=== PATIENT | female | born 1950 | race Caucasian/White ===

== ENCOUNTER 2019-02-22 14:24 | Emergency (ER) | payer OTHER, BC ==
[2019-02-22] MEDS ORDERED: ASPIRIN 81 MG CHEWABLE TAB PO ONE (15:01)
[2019-02-22 15:08] LABS: PLATELET COUNT 243 10^3/uL (150-400)
--- NOTE | 2019-02-22 17:28 | EDPHY ---
H & P Stated Complaint: lighthead, dizzy. left sided, rib pain Time Seen by Provider: 02/22/19 14:42 HPI/ROS: CHIEF COMPLAINT: Left-sided chest pain HISTORY OF PRESENT ILLNESS: This is a 68-year-old female with a history of hypertension but otherwise in good health who presents with mild left-sided chest pain. She was hiking earlier today when she began to feel poorly. She felt slightly lightheaded and became diaphoretic. This came over her in a wave- like manner. She subsequently noted a twinge of left-sided chest pain. There is no radiation of this discomfort. She did not have nausea or vomiting. She did not feel short of breath. Chest discomfort continued, prompting her visit to the emergency department. She has a strong family history of cardiac disease. Her father at age 77 of an PR. She has a brother who at age 66 of an PR and another brother with coronary artery disease status post stenting. She does not use tobacco products. REVIEW OF SYSTEMS: A ten system review of systems was performed and is negative with the exception of the items mentioned in the HPI. Past medical history: Hypertension Past surgical history: Removal of skin cancer Family history: Positive for coronary artery disease as per HPI Social history: She lives with her in [place], [place]. 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 She does not use tobacco products. She drinks alcohol rarely. They have family in [place]. General Appearance: Alert. Vital signs reviewed. Initial blood pressure 181/ 95. Eyes: Pupils equal and round, no conjunctival injection, no discharge. Anicteric. ENT, Mouth: Mucous membranes are moist, no oropharyngeal erythema or edema. Neck: No lymphadenopathy, supple. Respiratory: Lungs are clear to auscultation; no wheezes, rales, or rhonchi. Cardiovascular: Regular rate and rhythm; no murmur, rub, or gallop. Gastrointestinal: Abdomen is soft and nontender, no masses or organomegaly, bowel sounds normal. Skin: Warm and dry, no rashes on exposed skin, normal color. Back: Nontender to palpation over the thoracolumbar spine. No CVAT. Extremities: No lower extremity edema, no calf tenderness or swelling. Neurological: Alert and oriented. Moving all four extremities easily and equally. STORM. EOMI. Tongue midline. Facial expressions symmetric. Psychiatric: Normal affect. - Personal History Current Tetanus Diphtheria and Acellular Pertussis (TDAP): Yes - Medical/Surgical History Hx Asthma: No Hx Chronic Respiratory Disease: No Hx Diabetes: No Hx Cardiac Disease: No Hx Renal Disease: No Hx Cirrhosis: No Hx Alcoholism: No Hx HIV/AIDS: No Hx Splenectomy or Spleen Trauma: No Other PMH: htn - Social History Smoking Status: Never smoked Constitutional: Initial Vital Signs Temperature (C) 36.7 C 02/22/19 14:30 Heart Rate 76 02/22/19 14:30 Respiratory Rate 16 02/22/19 14:30 Blood Pressure 181/95 H 02/22/19 14:30 O2 Sat (%) 93 02/22/19 14:30 O2 Delivery Mode Room Air Allergies/Adverse Reactions: No Known Allergies Allergy (Unverified 02/22/19 14:34) Home Medications: Medication Instructions Recorded Lisinopril 02/22/19 Metoprolol ER-Hctz 100-12.5 mg 02/22/19 Medical Decision Making - Diagnostics EKG Interpretation: 12 lead EKG is interpreted in [place] by emergency department physician. 2 EKGs were interpreted by me. ED Course/Re-evaluation: 68-year-old female with hypertension and a family history of coronary artery disease who presents with mild left-sided chest discomfort. At the time of her visit to the emergency department she is no longer experiencing chest pain. She received aspirin. Initial EKG had some artifact in leads V4. When some very minimal ST depression anterolaterally. I did not think that it was indicative of ischemic change. Repeat EKG was entirely normal with sinus rhythm and no signs of ischemia. Labs including CBC, chemistries, and initial troponin were all within normal limits with the exception of a mildly elevated glucose at 1:09 a.m.. Chest x- ray showed no acute pulmonary disease and no evidence of heart failure. There is nothing to suggest a pneumonia. Her history is not consistent with PE and I do not recommend additional testing to look for PE. I spoke with the patient and her about how to proceed. She has remained pain-free. Her HEART score is three, putting her in a low risk category. I am recommending a repeat EKG and repeat troponin. These were performed and were normal. I am comfortable with her leaving at apartment. She agrees. She has been referred to [facility] but will be leaving [place] and returning to [place] at the end of the week. She was given copies of her lab work and EKGs to take to her primary care physician in [place]. She understands the importance of following up with a formula checker for additional risk stratification and testing as needed. She has remained hypertensive in the emergency department. She is compliant with her antihypertensives. Based on her report, her blood pressure is labile. She will follow up with her primary care physician in [place] concerning blood pressure control. Differential Diagnosis: Chest pain including but not limited to myocardial ischemia, pulmonary embolus, chest wall pain, pleural inflammation and pulmonary infectious causes. - Data Points Laboratory Results: Laboratory Results 02/22/19 14:45 02/22/19 14:45 Medications Given: Discontinued Medications Aspirin (Aspirin) 324 mg PO EDNOW ONE Stop: 02/22/19 15:02 Last Admin: 02/22/19 15:11 Dose: 324 mg Point of Care Test Results: Chemistry 02/22/19 02/22/19 17:12 15:01 POC Troponin I 0.00 ng/mL ng/mL 0.01 ng/mL ng/mL (0.00-0.08) (0.00-0.08) Departure - Departure Disposition: Home, Routine, Self-Care Clinical Impression: Chest pain Qualifiers: Chest pain type: unspecified Qualified Code(s): R07.9 - Chest pain, unspecified Condition: Good Instructions: Chest Pain (ED) Additional Instructions: As we discussed, you have a low risk of having a major acute cardiac event within the next 6 weeks. I feel comfortable with her returning home tonight. However, if you develop persistent chest pain, shortness of breath, nausea, any new or concerning symptoms, please return and be re-evaluated. I am referring you to our cardiology service. They should contact you for follow-up but if you do not hear from them tomorrow morning I recommend that you give them a phone call. You can also follow up with your primary care provider and/or a formula checker in [place] when you return home. Referrals: [facility] [Other] - As per Instructions Naga Olmos MD [Medical Doctor] - As per Instructions
[2019-02-22 17:43] VITALS: BP 176/106
--- NOTE | 2019-02-22 20:53 | CPEKG ---
Test Reason : OPEN Blood Pressure : / mmHG Vent. Rate : 068 BPM Atrial Rate : 069 BPM P-R Int : 155 ms QRS Dur : 082 ms QT Int : 391 ms P-R-T Axes : 043 022 031 degrees QTc Int : 416 ms Sinus rhythm Minimal ST depression, anterolateral leads Artifact V4 Confirmed by Rosi Narvaez ([id number]) on 02/22/2019 8:52:56 PM Referred By: Rosi Narvaez Confirmed By:Rosi Narvaez
--- NOTE | 2019-02-22 20:53 | CPEKG ---
Test Reason : OPEN Blood Pressure : / mmHG Vent. Rate : 065 BPM Atrial Rate : 065 BPM P-R Int : 155 ms QRS Dur : 079 ms QT Int : 407 ms P-R-T Axes : 049 023 017 degrees QTc Int : 424 ms Sinus rhythm Confirmed by Gissel Kirk ([id number]) on 02/22/2019 8:52:38 PM Referred By: GISSEL KIRK Confirmed By:Gissel Kirk
== END 2019-02-22 17:42 | disposition home or self-care (01) ==
DX: R07.9 Chest pain, unspecified (principal); I10 Essential (primary) hypertension; Z82.49 Family history of ischemic heart disease and other diseases of the circulatory system
CPT/HCPCS: 84484-ER